=== PATIENT | female | born 1995 | race Caucasian/White ===

== ENCOUNTER 2019-11-16 05:20 | Inpatient (IN) | payer BC ==
[~2019-11-16] VITALS: Ht 180.3 cm; Wt 126.4 kg
[2019-11-16] VITALS (19 sets, daily range): BP systolic 100–122; BP diastolic 55–97; PULSE 70–101; TEMP 97.6–99.2
[~2019-11-16 05:20] MED LIST: MOTRIN 600600 MG/TAB PO; PERCOCET 325 MG1 TA2 PO; PRENATAL TABLET PO; PRENATAL1 TA7 PO
--- NOTE | 2019-11-16 05:20 | NUR ---
Patient ambulatory to unit accompanied by spouse for scheduled repeat section delivery. Patient oriented to room and call light and gown on and resting in bed. COVID questions asked and patient denies any symptoms or exposure. VS WNL. FHR and contraction monitors placed and explained. Patient denies any leaking of fluid or vaginal bleeding and states the baby has been very active all night. 0530: IV started in right hand by Ba Garcia RN and labs collected from IV site and LR infusing. Consents reviewed and signed.
[2019-11-16 06:01] LABS: BASO % 0.1 % (0.0-2.0); EOS # 0.1 (0.0-0.7); EOS % 0.6 % (0-4.0); GRAN # 7.5 (1.4-6.5); HEMATOCRIT 30.6 % (37.0-47.0); HEMOGLOBIN 9.9 g/dl (12.5-16.0); LYMPH # 2.5 (1.2-3.4); LYMPH % 23.6 % (20.0-51.0); MEAN CELL VOLUME 79 fl (80.0-100.0); MEAN CORPUSCULAR HEMOGLOBIN 26 pg (27.0-31.0); MEAN CORPUSCULAR HGB CONC 32 g/dl (33.0-37.0); MEAN PLATELET VOLUME 9.9 fl (7.4-10.4); MONO # 0.6 (0.1-0.6); MONO % 5.4 % (1.7-9.3); PLATELET COUNT 180 K/mm3 (130-400); RED BLOOD COUNT 3.88 M/mm3 (4.10-5.30); REDCELL DISTRIBUTION WIDTH-CV 16.4 % (11.5-14.5)
[2019-11-16] MEDS ORDERED: NATURAL IRON65 MG (06:38)
[2019-11-16] MEDS ORDERED: CLARITIN 1010 MG/TAB PO (06:38)
[2019-11-16] MEDS ORDERED: CALCIUM CARBON650 M2 (06:38)
--- NOTE | 2019-11-16 15:10 | NUR ---
1510- Pt ambulates to bathroom independently with standby assist x1. Pericare completed and explained. Bleeding precautions given. Pt ambulates around room while bedding changed. Tolerated well.
[2019-11-17 02:35] VITALS: BP 105/61; PULSE 81; TEMP 97.7
[2019-11-17 09:03] VITALS: BP 113/64; PULSE 80; TEMP 98.1
[2019-11-17 17:45] VITALS: BP 124/78; PULSE 81; TEMP 98.6
[2019-11-17 20:00] VITALS: BP 113/79; PULSE 76; TEMP 97.9
[2019-11-18] MEDS ORDERED: IBU600 MG PO (07:08)
[2019-11-18] MEDS ORDERED: PERCOCET 325 MG1 TA2 PO (07:08)
[2019-11-18 07:40] VITALS: BP 104/61; PULSE 75; TEMP 97.7
== END 2019-11-18 09:25 | disposition home or self-care (01) | DRG 788 ==
LOC: OB 05:20 → LDR 11:31 → OB 11-18 09:25
PROVIDERS: ADMIT Obstetrics & Gynecology
PROC: 10D00Z1 Extraction of Products of Conception, Low, Open Approach (ICD-10-PCS; principal; 2019-11-16)
DX: O34.211 Maternal care for low transverse scar from previous cesarean delivery (principal); O99.02 Anemia complicating childbirth; D64.9 Anemia, unspecified; O99.214 Obesity complicating childbirth; Z3A.39 39 weeks gestation of pregnancy; Z37.0 Single live birth
CPT/HCPCS: J0690; J1885; J2370; J2405; J2590; J7120